=== PATIENT | female | born 1980 | race Caucasian/White ===

== ENCOUNTER 2017-02-06 22:27 | Emergency (ER) | payer MEDICAID ==
[~2017-02-06] VITALS: Ht 182.9 cm; Wt 125.0 kg
[~2017-02-06 22:27] MED LIST: CLON1 PO; FERR1TAB58 PO; IBUP-232 PO; SYNT300T PO; VITA2000 PO; XANA1TAB2 PO
[2017-02-06 22:37] VITALS: BP 156/99; PULSE 90; RESP 18; TEMP 98.3; O2SAT 99
[2017-02-06 22:59] VITALS: BP_SYST 123; BP_SYST 142; BP_DIAS 79; BP_DIAS 82
[2017-02-06] MEDS ORDERED: SODIUM CHLORIDE 0.9% FLUSH 10 ML FLUSH IVF PRN (23:00)
[2017-02-06] MEDS ORDERED: IBUPROFEN 800 MG TAB PO ONE (23:00)
--- NOTE | 2017-02-06 23:00 | PD ---
HPI Chief Complaint: Pain: Acute or Chronic Time Seen by Provider: 22:49 Travel History International Travel<30 days: No Contact w/Intl Traveler<30days: No Traveled to known affect area: No History of Present Illness HPI 36-year-old female with history of anxiety here for evaluation of left anterior chest wall pain. Pain started earlier today and seemed to have worsened over the last hour. Pain is sharp, constant, moderate, worse with movement and palpation. Patient denies trauma. No dyspnea. No known history of significant cardiac disease. No history of DVT or PE. She does smoke about a half pack cigarettes per day and has history of asthma. PFSH Past Medical History Autoimmune Disease: No Blood Disorders: No Bipolar Disorder: Yes Anxiety: Yes Depression: Yes Cancer: No Cardiovascular Problems: No Diabetes: No Diminished Hearing: No Endocrine: No Gastrointestinal Disorders: Yes GERD: Yes Genitourinary: No Headaches: Yes Neurologic: Yes Respiratory: No Integumentary: Yes Immunizations Current: No Migraines: Yes Pneumonia: Yes Thyroid Disease: Yes (HYPO) ?: Not : 6 Para: 4 Miscarriage: 1 : 2 Tubal Ligation: Yes Past Surgical History Abdominal Surgery: No Body Medical Devices: HYPOTHYROIDISM Cardiac Surgery: No Cholecystectomy: Yes Ear Surgery: No Endocrine Surgery: No Eye Surgery: No Genitourinary Surgery: No Gynecologic Surgery: No Neurologic Surgery: No Oral Surgery: Yes Thoracic Surgery: No Other Surgery: Yes (DEVIATED SEPTUM ) Social History Alcohol Use: No (QUIT 2013) Tobacco Use: Yes (3-4 CIGS/DAY) Substance Use: No Allergies-Medications (Allergen,Severity, Reaction): Coded Allergies: Codeine (Verified Allergy, Severe, Hallucinations, 02/06/17) . Erythromycin (Verified Allergy, Severe, PT ALLERGIC TO " ALL MYCINS", 02/06) . Levaquin (Verified Allergy, Severe, Hives, 02/06/17) . Zithromax (Verified Allergy, Severe, HIVES, 02/06/17) . Cleocin (Verified Allergy, Intermediate, HIVES, 02/06/17) . Unasyn (Verified Allergy, Intermediate, HIVES, 02/06/17) . Vancomycin (Verified Allergy, Mild, RASH WITH ITCHING, 02/06/17) . Zoloft (Verified Allergy, Mild, HIVES, 02/06/17) . Doxycycline (Verified Adverse Reaction, Intermediate, VOMITS, 02/06/17) . Uncoded Allergies: STEROIDS" (Allergy, Severe, Anaphylaxis, 03/16/16) .PT STATES NOT ALLERGIC Reported Meds & Prescriptions Reported Meds & Active Scripts Active Reported Ibuprofen 600 Mg Tab 600 Mg PO Q6H PRN Klonopin (Clonazepam) 1 Mg Tab 0.5 Mg PO BID Synthroid (Levothyroxine Sodium) 300 Mcg Tab 300 Mcg PO DAILY Review of Systems Except as stated in HPI: all other systems reviewed are Neg Physical Exam Narrative GENERAL: Well-developed, well-nourished, comfortable, no acute distress. SKIN: Focused skin assessment warm/dry. No petechiae. No circular lesions. HEAD: Atraumatic. Normocephalic. EYES: Pupils equal and round. No scleral icterus. No injection or drainage. ENT: Mucous membranes pink and moist. NECK: Trachea midline. No JVD. CARDIOVASCULAR: Regular rate and rhythm. RESPIRATORY: No accessory muscle use. Clear to auscultation. Breath sounds equal bilaterally. GASTROINTESTINAL: Abdomen soft, non-tender, nondistended. MUSCULOSKELETAL: No obvious deformities. No clubbing. No cyanosis. No edema. Left anterior chest wall tenderness below left breast as well as lateral and posterior chest wall tenderness along same rib line. No step-off, no crepitus, no paradoxical chest wall movement. NEUROLOGICAL: Awake and alert. No obvious cranial nerve deficits. Motor grossly within normal limits. Normal speech. PSYCHIATRIC: Appropriate mood and affect; insight and judgment normal. Data Data Last Documented VS Vital Signs Date Time Temp Pulse Resp B/P Pulse Ox O2 Delivery O2 Flow Rate FiO2 02/06/17 22:59 142/79 123/82 02/06/17 22:37 98.3 90 18 99 Orders Electrocardiogram (02/06/17 22:54) Basic Metabolic Panel (Bmp) (02/06/17 22:54) Ckmb (Isoenzyme) Profile (02/06/17 22:54) Complete Blood Count With Diff (02/06/17 22:54) D-Dimer (02/06/17 22:54) Prothrombin Time / Inr (Pt) (02/06/17 22:54) Act Partial Throm Time (Ptt) (02/06/17 22:54) Troponin I (02/06/17 22:54) Chest, Single Ap (02/06/17 22:54) Ecg Monitoring (02/06/17 22:54) Bilateral Bp Monitoring (02/06/17 22:54) Iv Access Insert/Monitor (02/06/17 22:54) Oximetry (02/06/17 22:54) Oxygen Administration (02/06/17 22:54) Sodium Chloride 0.9% Flush (Ns Flush) (02/06/17 23:00) Ibuprofen (Motrin) (02/06/17 23:00) CKMB (02/06/17 23:05) CKMB% (02/06/17 23:05) Ct Pulmonary Angiogram (02/06/17 23:43) Pantoprazole Inj (Protonix Inj) (02/07/17 00:00) Al-Mag Hy-Si 40-40-4 Mg/Ml Liq (Mag-Al P (02/07/17 00:00) Lidocaine 2% Viscous (Xylocaine 2% Visco (02/07/17 00:00) Lipase (02/06/17 23:05) Labs Laboratory Tests Test 02/06/17 23:05 White Blood Count 7.9 TH/MM3 Red Blood Count 4.77 MIL/MM3 Hemoglobin 11.8 GM/DL Hematocrit 36.0 % Mean Corpuscular Volume 75.4 FL Mean Corpuscular Hemoglobin 24.8 PG Mean Corpuscular Hemoglobin 32.9 % Concent Red Cell Distribution Width 15.5 % Platelet Count 250 TH/MM3 Mean Platelet Volume 8.4 FL Neutrophils (%) (Auto) 56.5 % Lymphocytes (%) (Auto) 34.0 % Monocytes (%) (Auto) 4.7 % Eosinophils (%) (Auto) 4.7 % Basophils (%) (Auto) 0.1 % Neutrophils # (Auto) 4.3 TH/MM3 Lymphocytes # (Auto) 2.7 TH/MM3 Monocytes # (Auto) 0.4 TH/MM3 Eosinophils # (Auto) 0.4 TH/MM3 Basophils # (Auto) 0.0 TH/MM3 CBC Comment DIFF FINAL Differential Comment Prothrombin Time 11.1 SEC Prothromb Time International 1.0 RATIO Ratio Activated Partial 25.9 SEC Thromboplast Time D-Dimer Quantitative (PE/DVT) 0.79 MG/L FEU Sodium Level 140 MEQ/L Potassium Level 3.2 MEQ/L Chloride Level 107 MEQ/L Carbon Dioxide Level 25.3 MEQ/L Anion Gap 8 MEQ/L Blood Urea Nitrogen 6 MG/DL Creatinine 0.92 MG/DL Estimat Glomerular Filtration 69 ML/MIN Rate Random Glucose 85 MG/DL Calcium Level 8.6 MG/DL Total Creatine Kinase 105 U/L Creatine Kinase MB 0.7 NG/ML Troponin I LESS THAN 0.02 NG/ML Lipase 110 U/L MDM Medical Decision Making Medical Screen Exam Complete: Yes Emergency Medical Condition: Yes Medical Record Reviewed: Yes Interpretation(s) EKG: Sinus, rate 76, normal axis, normal intervals, no acute ischemic abnormality. Differential Diagnosis ACS, pneumothorax, pericarditis, PE, pneumonia, musculoskeletal pain, Narrative Course Initial vital signs show heart rate 90, blood pressure 156/99, pulse ox 99% on room air, oral temp of 98.3F. CBC is essentially unremarkable. BMP is remarkable for potassium 3.2, otherwise unremarkable. Lipase is 110. Cardiac enzymes are negative. D-dimer 0.79. Chest x-ray: No acute cardiopulmonary disease. At approximately midnight at the end of my shift the patient was made aware of all findings. She is resting comfortably. I was initially going to give her Toradol, however she requested ibuprofen instead. She reports some improvement in pain. She is rendering equipment tender over her left chest wall. She is also telling me that she has some epigastric discomfort occasionally and is worried about potential ulcers. Lipase was sent and is 110. Her abdominal exam is benign. Her symptoms are most consistent with musculoskeletal pain. I do not believe her symptoms are cardiac in nature. Given slight elevation in d-dimer, CT pulmonary angiogram was ordered, and was signed out to Dr. Barajas to follow up with and to formulate a disposition. Mat Madison MD Feb 06, 2017 23:00
[2017-02-06 23:22] LABS: AUTOMATED NEUTROPHIL # 4.3 TH/MM3 (1.8-7.7); BASOPHIL % 0.1 % (0.0-2.0); EOSINOPHIL # 0.4 TH/MM3 (0-0.4); EOSINOPHIL % 4.7 % (0.0-4.0); LYMPHOCYTE # 2.7 TH/MM3 (1.0-4.8); MEAN CELL VOLUME 75.4 FL (80.0-100.0); MEAN CORPUSCULAR HEMOGLOBIN 24.8 PG (27.0-34.0); MEAN CORPUSCULAR HGB CONC 32.9 % (32.0-36.0); MONO % 4.7 % (0.0-8.0); NEUT % 56.5 % (16.0-70.0); PLATELET COUNT 250 TH/MM3 (150-450); RED BLOOD COUNT 4.77 MIL/MM3 (4.00-5.30); RED CELL DISTRIBUTION WIDTH 15.5 % (11.6-17.2); WHITE BLOOD COUNT 7.9 TH/MM3 (4.0-11.0)
[2017-02-06 23:26] LABS: HEMO FLAGS DIFF FINAL
[2017-02-06 23:31] LABS: CHLORIDE 107 MEQ/L (98-107); POTASSIUM 3.2 MEQ/L (3.5-5.1); SODIUM (NA) 140 MEQ/L (136-145)
[2017-02-06 23:34] LABS: ANION GAP 8 MEQ/L (5-15); BICARBONATE 25.3 MEQ/L (21.0-32.0); BLOOD UREA NITROGEN 6 MG/DL (7-18)
[2017-02-06 23:37] LABS: APTT (PATIENT) 25.9 SEC (24.3-30.1); GLOMERULAR FILTRATION RATE 69 ML/MIN (>89); PROTHROMBIN TIME - PATIENT 11.1 SEC (9.8-11.6)
[2017-02-06 23:40] LABS: CREATINE KINASE 105 U/L (26-192)
--- NOTE | 2017-02-06 23:48 | RADHPO ---
EXAM DATE/TIME: 02/06/2017 23:17 [facility] COMPARISON: CHEST PA & LAT, July 01, 2016, 1:53. INDICATIONS : Chest pain. MEDICAL HISTORY : None. SURGICAL HISTORY : Tubal ligation. ENCOUNTER: Initial ACUITY: 1 day PAIN SCORE: 7/10 LOCATION: Left upper chest FINDINGS: The lungs are clear without infiltrate, nodule, or mass. There is no appreciable pleural effusion fo r technique. Heart and mediastinum are unremarkable. CONCLUSION: No acute cardiopulmonary disease. Aashish Lu MD on February 06, 2017 at 23:46 Board Certified Radiologist. This report was verified electronically.
[2017-02-06 23:53] LABS: CKMB 0.7 NG/ML (0.5-3.6)
[2017-02-07] MEDS ORDERED: LIDOCAINE VISCOUS 2% SOLN 15 ML UDC PO ONE
[2017-02-07] MEDS ORDERED: ALUMINUM/MAGNESIUM/SIMETH 30 ML CUP PO ONE
[2017-02-07] MEDS ORDERED: PANTOPRAZOLE SODIUM 40 MG VIAL IVP ONE
[2017-02-07 00:13] VITALS: BP 135/74; PULSE 75; RESP 16; O2SAT 98
[2017-02-07] MEDS ORDERED: IOHEXOL 350 MG/ML 10 ML VIAL (for RAD DIAG) IV ONE (00:15)
--- NOTE | 2017-02-07 00:21 | RADHPO ---
EXAM DATE/TIME: 02/06/2017 23:52 [facility] COMPARISON: No previous studies available for comparison. INDICATIONS : Left sided chest pain along with elevated D-dimer. Evaluate for pulmonary emoblism. IV CONTRAST: 72 cc Omnipaque 350 (iohexol) IV RADIATION DOSE: 21.79 CTDIvol (mGy) MEDICAL HISTORY : Hypothyroidism. Gastroesophageal reflux disease. SURGICAL HISTORY : Tubal ligation. Cholecystectomy. ENCOUNTER: Initial ACUITY: 1 day PAIN SCALE: 4/10 LOCATION: Left chest TECHNIQUE: Volumetric scanning of the chest was performed using a pulmonary embolism protocol MIP images were re constructed. Using automated exposure control and adjustment of the mA and/or kV according to patien t size, radiation dose was kept as low as reasonably achievable to obtain optimal diagnostic quality images. FINDINGS: There is no evidence for PE for technique.There is an approximate 5.3 cm simple cyst in the left hepa tic lobe. There is a tiny 4-5 mm right middle lobe nodule laterally close to the pleural surfaces wit hout demonstrable calcifications. There is no pleural effusion. No appreciable pathological adenopat hy is seen within the mediastinum. CONCLUSION: 1. There is no evidence for PE for technique. 2. Right lung nodule most likely benign, repeat noncontrast chest CT is suggested in 6 months as a co nservative follow up. Aashish Lu MD on February 07, 2017 at 0:15 Board Certified Radiologist. This report was verified electronically.
--- NOTE | 2017-02-07 00:31 | PD ---
Data Data Last Documented VS Vital Signs Date Time Temp Pulse Resp B/P Pulse Ox O2 Delivery O2 Flow Rate FiO2 02/07/17 00:13 75 16 135/74 98 Room Air 02/06/17 22:37 98.3 Orders Electrocardiogram (02/06/17 22:54) Basic Metabolic Panel (Bmp) (02/06/17 22:54) Ckmb (Isoenzyme) Profile (02/06/17 22:54) Complete Blood Count With Diff (02/06/17 22:54) D-Dimer (02/06/17 22:54) Prothrombin Time / Inr (Pt) (02/06/17 22:54) Act Partial Throm Time (Ptt) (02/06/17 22:54) Troponin I (02/06/17 22:54) Chest, Single Ap (02/06/17 22:54) Ecg Monitoring (02/06/17 22:54) Bilateral Bp Monitoring (02/06/17 22:54) Iv Access Insert/Monitor (02/06/17 22:54) Oximetry (02/06/17 22:54) Oxygen Administration (02/06/17 22:54) Sodium Chloride 0.9% Flush (Ns Flush) (02/06/17 23:00) Ibuprofen (Motrin) (02/06/17 23:00) CKMB (02/06/17 23:05) CKMB% (02/06/17 23:05) Ct Pulmonary Angiogram (02/06/17 23:43) Pantoprazole Inj (Protonix Inj) (02/07/17 00:00) Al-Mag Hy-Si 40-40-4 Mg/Ml Liq (Mag-Al P (02/07/17 00:00) Lidocaine 2% Viscous (Xylocaine 2% Visco (02/07/17 00:00) Lipase (02/06/17 23:05) Iohexol 350 Inj (Omnipaque 350 Inj) (02/07/17 00:15) Labs Laboratory Tests Test 02/06/17 23:05 White Blood Count 7.9 TH/MM3 Red Blood Count 4.77 MIL/MM3 Hemoglobin 11.8 GM/DL Hematocrit 36.0 % Mean Corpuscular Volume 75.4 FL Mean Corpuscular Hemoglobin 24.8 PG Mean Corpuscular Hemoglobin 32.9 % Concent Red Cell Distribution Width 15.5 % Platelet Count 250 TH/MM3 Mean Platelet Volume 8.4 FL Neutrophils (%) (Auto) 56.5 % Lymphocytes (%) (Auto) 34.0 % Monocytes (%) (Auto) 4.7 % Eosinophils (%) (Auto) 4.7 % Basophils (%) (Auto) 0.1 % Neutrophils # (Auto) 4.3 TH/MM3 Lymphocytes # (Auto) 2.7 TH/MM3 Monocytes # (Auto) 0.4 TH/MM3 Eosinophils # (Auto) 0.4 TH/MM3 Basophils # (Auto) 0.0 TH/MM3 CBC Comment DIFF FINAL Differential Comment Prothrombin Time 11.1 SEC Prothromb Time International 1.0 RATIO Ratio Activated Partial 25.9 SEC Thromboplast Time D-Dimer Quantitative (PE/DVT) 0.79 MG/L FEU Sodium Level 140 MEQ/L Potassium Level 3.2 MEQ/L Chloride Level 107 MEQ/L Carbon Dioxide Level 25.3 MEQ/L Anion Gap 8 MEQ/L Blood Urea Nitrogen 6 MG/DL Creatinine 0.92 MG/DL Estimat Glomerular Filtration 69 ML/MIN Rate Random Glucose 85 MG/DL Calcium Level 8.6 MG/DL Total Creatine Kinase 105 U/L Creatine Kinase MB 0.7 NG/ML Troponin I LESS THAN 0.02 NG/ML Lipase 110 U/L MDM Supervised Visit with LIZBETH: No Narrative Course I took over care of this patient from Dr. Madison. She presents with left-sided chest discomfort. She's been here to the emergency department in the past for similar symptoms. Labs were obtained which were all reassuring. D-dimer was slightly elevated so a CT pulmonary angiogram was obtained. This was reassuring except for a pulmonary nodule which I discussed with her, and I discussed the need for repeat imaging in 6 months. I don't think there is a cardiac or emergent etiology of the patient's symptoms. I think she is safe for discharge and follow-up with the primary care physician. Diagnosis Primary Impression: Atypical chest pain Patient Instructions: General Instructions Additional Instruction: If you develop severe chest pain, shortness of breath, sweating, lightheadedness , dizziness or difficulty breathing return to the emergency department immediately. Followup with your primary care physician in 2-3 days if your symptoms are not resolved. You have a lung nodule on your right lung. You should have a noncontrasted chest CT performed and 6 months for follow-up. Med/Other Pt SpecificInfo: No Change to Meds Disposition: 01 DISCHARGE HOME Condition: Stable Peri Barajas MD Feb 07, 2017 00:31
--- NOTE | 2017-02-07 15:14 | EKG ---
Date Performed: 02/06/2017 Time Performed: 23:06:49 PTAGE: 36 years EKG: Sinus rhythm NORMAL ECG Compared to prior tracing no significant change PREVIOUS TRACING : 07/01/2016 02.27 DOCTOR: Gt Montes Interpretating Date/Time 02/07/2017 15:14:17
== END 2017-02-07 00:43 | disposition home or self-care (01) ==
LOC: PHED 22:27
DX: R07.89 Other chest pain (principal); F17.210 Nicotine dependence, cigarettes, uncomplicated; K21.9 Gastro-esophageal reflux disease without esophagitis; E03.9 Hypothyroidism, unspecified
CPT/HCPCS: 71010; 71275; 80048; 82550; 82552; 83690; 84484; 85025; 85379; 85610; 85730; 93005; 96374; 99285; C9113; Q9967